=== PATIENT | female | born 1980 | race Caucasian/White ===

== ENCOUNTER 2016-12-10 04:58 | Emergency (ER) | payer OTHER ==
[~2016-12-10] VITALS: Ht 160 cm; Wt 58.9 kg
[2016-12-10 05:06] VITALS: BP 181/119; PULSE 48; RESP 16; TEMP 96.8; O2SAT 97
[2016-12-10] MEDS ORDERED: SODIUM CHLOR 0.9% 1000 ML INJ 1,000 ML IV SCH ×2 (05:37→06:00)
--- NOTE | 2016-12-10 05:43 | PD ---
HPI Chief Complaint: Abdominal Pain Time Seen by Provider: 05:37 Travel History International Travel<30 days: No Contact w/Intl Traveler<30days: No Traveled to known affect area: No History of Present Illness HPI The patient is a 35-year-old female with a history of irritable bowel syndrome who complains of bilateral lower quadrant pain along with nausea, vomiting and diarrhea and blood in the stool for the past 3 hours. She denies any fever, recent antibiotics, recent foreign travel, well water ingestion, family history of bowel problems like regional arteritis or ulcerative colitis. She does feel dehydrated. She states her pain level is a 8 over 10 and a "tightening feeling " over her lower quadrants. She is not had any abdominal surgery and still has her appendix and gallbladder. She is sexually active but states she uses protection. She does not use control pills and does not have an IUD. PFSH Past Medical History Gastrointestinal Disorders: Yes (ibs) Medical other: Yes Tetanus Vaccination: > 5 Years Influenza Vaccination: No ?: Not LMP: 2 weeks ago Past Surgical History Abdominal Surgery: Yes (lawson mcclellan) Social History Alcohol Use: Yes Tobacco Use: Yes (1ppd) Allergies-Medications (Allergen,Severity, Reaction): Coded Allergies: No Known Allergies (Unverified , 12/10/16) Reported Meds & Prescriptions Reported Meds & Active Scripts Active Flagyl (Metronidazole) 500 Mg Tab 500 Mg PO TID 7 Days Cipro (Ciprofloxacin HCl) 500 Mg Tab 500 Mg PO BID 7 Days Review of Systems Except as stated in HPI: all other systems reviewed are Neg Physical Exam Narrative GENERAL: The patient is alert, mildly dehydrated appearing in moderate apparent distress with her abdominal discomfort. Her vital signs show blood pressure 181 /119 and heart rate of 48 but otherwise normal. SKIN: Focused skin assessment warm/dry. HEAD: Atraumatic. Normocephalic. EYES: Pupils equal and round. No scleral icterus. No injection or drainage. ENT: No nasal bleeding or discharge. Mucous membranes pink and moist. NECK: Trachea midline. No JVD. CARDIOVASCULAR: Regular rate and rhythm. No murmur appreciated. RESPIRATORY: No accessory muscle use. Clear to auscultation. Breath sounds equal bilaterally. GASTROINTESTINAL: Abdomen soft, with tenderness to direct palpation in bilateral lower quadrants, nondistended. Hepatic and splenic margins not palpable. No guarding or rebound is present. MUSCULOSKELETAL: No obvious deformities. No clubbing. No cyanosis. No edema. NEUROLOGICAL: Awake and alert. No obvious cranial nerve deficits. Motor grossly within normal limits. Normal speech. PSYCHIATRIC: Appropriate mood and affect; insight and judgment normal. RECTAL EXAM: No masses or tenderness, stool is absent in the colon and I could not test the stool for guaiac positive. There are no active hemorrhoids and there are no perirectal abscess is present. I did not see any gross blood during the rectal exam. Data Data Last Documented VS Vital Signs Date Time Temp Pulse Resp B/P Pulse Ox O2 Delivery O2 Flow Rate FiO2 12/10/16 07:25 76 15 128/75 98 12/10/16 05:52 Room Air 12/10/16 05:06 96.8 Orders Beta Hcg (Quant/Titer) (12/10/16 05:37) Complete Blood Count With Diff (12/10/16 05:37) Comprehensive Metabolic Panel (12/10/16 05:37) Urinalysis - C+S If Indicated (12/10/16 05:37) Iv Access Insert/Monitor (12/10/16 05:37) Ecg Monitoring (12/10/16 05:37) Oximetry (12/10/16 05:37) Morphine Inj (Morphine Inj) (12/10/16 05:45) Ondansetron Inj (Zofran Inj) (12/10/16 05:45) Sodium Chlor 0.9% 1000 Ml Inj (Ns 1000 M (12/10/16 05:37) Sodium Chloride 0.9% Flush (Ns Flush) (12/10/16 05:45) Sodium Chlor 0.9% 1000 Ml Inj (Ns 1000 M (12/10/16 06:00) Ondansetron Inj (Zofran Inj) (12/10/16 06:00) Ct Abd/Pel W Iv Contrast(Rout) (12/10/16 06:08) Lipase (12/10/16 05:44) Iohexol 350 Inj (Omnipaque 350 Inj) (12/10/16 06:46) Ciprofloxacin (Cipro) (12/10/16 07:30) Metronidazole (Flagyl) (12/10/16 07:30) Labs Laboratory Tests Test 12/10/16 12/10/16 05:44 06:48 White Blood Count 20.6 TH/MM3 Red Blood Count 4.65 MIL/MM3 Hemoglobin 14.0 GM/DL Hematocrit 41.9 % Mean Corpuscular Volume 90.1 FL Mean Corpuscular Hemoglobin 30.2 PG Mean Corpuscular Hemoglobin 33.5 % Concent Red Cell Distribution Width 14.3 % Platelet Count 311 TH/MM3 Mean Platelet Volume 9.8 FL Neutrophils (%) (Auto) 84.2 % Lymphocytes (%) (Auto) 8.7 % Monocytes (%) (Auto) 6.1 % Eosinophils (%) (Auto) 0.5 % Basophils (%) (Auto) 0.5 % Neutrophils # (Auto) 17.3 TH/MM3 Lymphocytes # (Auto) 1.8 TH/MM3 Monocytes # (Auto) 1.3 TH/MM3 Eosinophils # (Auto) 0.1 TH/MM3 Basophils # (Auto) 0.1 TH/MM3 CBC Comment DIFF FINAL Differential Comment Sodium Level 142 MEQ/L Potassium Level 3.6 MEQ/L Chloride Level 107 MEQ/L Carbon Dioxide Level 22.9 MEQ/L Anion Gap 12 MEQ/L Blood Urea Nitrogen 17 MG/DL Creatinine 0.66 MG/DL Estimat Glomerular Filtration 101 ML/MIN Rate Random Glucose 101 MG/DL Calcium Level 9.2 MG/DL Total Bilirubin 0.5 MG/DL Aspartate Amino Transf 18 U/L (AST/SGOT) Alanine Aminotransferase 25 U/L (ALT/SGPT) Alkaline Phosphatase 68 U/L Total Protein 7.7 GM/DL Albumin 4.1 GM/DL Lipase 94 U/L Human Chorionic Gonadotropin, LESS THAN 1 Quant MIU/ML Urine Collection Type CLEAN CATCH Urine Color YELLOW Urine Turbidity CLEAR Urine pH 6.0 Urine Specific [place] 1.017 Urine Protein NEG mg/dL Urine Glucose (UA) NEG mg/dL Urine Ketones TRACE mg/dL Urine Occult Blood SMALL Urine Nitrite NEG Urine Bilirubin NEG Urine Leukocyte Esterase NEG Urine RBC 0-3 /hpf Urine WBC 0-2 /hpf Urine Squamous Epithelial 0-5 /hpf Cells Microscopic Urinalysis Comment CULT NOT INDICATED MDM Medical Decision Making Medical Screen Exam Complete: Yes Emergency Medical Condition: Yes Medical Record Reviewed: Yes Interpretation(s) The CBC shows a white count of 20,600 with 84% neutrophils but is otherwise unremarkable. The complete metabolic profile is normal and the beta-hCG is less than 1. Differential Diagnosis Viral gastroenteritis, colitis, appendicitis, dehydration, electrolyte disorder , urinary tract infection, anemia, diverticulitis Narrative Course It is now 0700 and the patient is transferred to Dr. Stephen who will review the CT scan/laboratory work. Scripts Metronidazole (Flagyl)500 Mg [id number] Mg PO TID 7 Days Ref 0 Prov:Maik Stephen MD 12/10/16 Ciprofloxacin (Cipro)500 Mg [id number] Mg PO BID 7 Days Ref 0 Prov:Maik Stephen MD 12/10/16 Simone Waldron MD Dec 10, 2016 05:43
[2016-12-10] MEDS ORDERED: SODIUM CHLORIDE 0.9% FLUSH 10 ML FLUSH IV FLUSH PRN (05:45)
[2016-12-10] MEDS ORDERED: MORPHINE SULFATE 4 MG/ML INJ IV PUSH ONE (05:45)
[2016-12-10] MEDS ORDERED: ONDANSETRON HCL 4 MG/2 ML VIAL IVP ONE (05:45)
[2016-12-10 05:48] VITALS: BP 179/92; PULSE 66; RESP 18; O2SAT 98
[2016-12-10 05:59] LABS: AUTOMATED NEUTROPHIL # 17.3 TH/MM3 (1.8-7.7); BASOPHIL # 0.1 TH/MM3 (0-0.2); BASOPHIL % 0.5 % (0.0-2.0); CHLORIDE 107 MEQ/L (98-107); EOSINOPHIL # 0.1 TH/MM3 (0-0.4); EOSINOPHIL % 0.5 % (0.0-4.0); HEMATOCRIT 41.9 % (35.0-46.0); HEMO FLAGS DIFF FINAL; LYMPH % 8.7 % (9.0-44.0); LYMPHOCYTE # 1.8 TH/MM3 (1.0-4.8); MEAN CELL VOLUME 90.1 FL (80.0-100.0); MEAN CORPUSCULAR HEMOGLOBIN 30.2 PG (27.0-34.0); MEAN CORPUSCULAR HGB CONC 33.5 % (32.0-36.0); MONO % 6.1 % (0.0-8.0); NEUT % 84.2 % (16.0-70.0); PLATELET COUNT 311 TH/MM3 (150-450); POTASSIUM 3.6 MEQ/L (3.5-5.1); RED BLOOD COUNT 4.65 MIL/MM3 (4.00-5.30); RED CELL DISTRIBUTION WIDTH 14.3 % (11.6-17.2); SODIUM (NA) 142 MEQ/L (136-145); WHITE BLOOD COUNT 20.6 TH/MM3 (4.0-11.0)
[2016-12-10] MEDS ORDERED: ONDANSETRON HCL 4 MG/2 ML VIAL IV ONE (06:00)
[2016-12-10 06:03] LABS: ANION GAP 12 MEQ/L (5-15); BICARBONATE 22.9 MEQ/L (21.0-32.0); BLOOD UREA NITROGEN 17 MG/DL (7-18)
[2016-12-10 06:06] LABS: ALT (GPT) 25 U/L (10-53); AST (GOT) 18 U/L (15-37); GLOMERULAR FILTRATION RATE 101 ML/MIN (>89)
[2016-12-10 06:07] LABS: TOTAL BILIRUBIN ADULT 0.5 MG/DL (0.2-1.0)
[2016-12-10 06:08] LABS: ALKALINE PHOSPHATASE 68 U/L (45-117)
[2016-12-10 06:11] LABS: BETA HCG QUANT LESS THAN 1 MIU/ML (0-5)
[2016-12-10] MEDS ORDERED: IOHEXOL 350 MG/ML 10 ML VIAL (for RAD DIAG) IV ONE (06:46)
--- NOTE | 2016-12-10 06:56 | RADRPT ---
EXAM DATE/TIME: 12/10/2016 06:26 [facility] COMPARISON: No previous studies available for comparison. INDICATIONS : Bilateral lower quadrant pain with nausea, vomiting and diarrhea. IV CONTRAST: 85 cc Omnipaque 350 (iohexol) IV ORAL CONTRAST: No oral contrast ingested. RADIATION DOSE: 4.86 CTDIvol (mGy) MEDICAL HISTORY : None SURGICAL HISTORY : Emi mcclellan. ENCOUNTER: Initial ACUITY: 1 day PAIN SCALE: 5/10 LOCATION: Bilateral lower quadrant TECHNIQUE: Volumetric scanning of the abdomen and pelvis was performed. Using automated exposure control and ad justment of the mA and/or kV according to patient size, radiation dose was kept as low as reasonably achievable to obtain optimal diagnostic quality images. DICOM format image data is available electro nically for review and comparison. FINDINGS: LOWER LUNGS: The visualized lower lungs are clear. LIVER: Homogeneous density without lesion. There is no dilation of the biliary tree. No calcified gallston es. Hepatic cyst seen. SPLEEN: Normal size without lesion. PANCREAS: Within normal limits. KIDNEYS: Normal in size and shape. There is no mass, stone or hydronephrosis. ADRENAL GLANDS: Within normal limits. VASCULAR: There is no aortic aneurysm. BOWEL/MESENTERY: Wall thickening of the transverse and descending colon. No significant inflammatory changes.. There is no free intraperitoneal air or fluid. ABDOMINAL WALL: Within normal limits. RETROPERITONEUM: There is no lymphadenopathy. BLADDER: No wall thickening or mass. REPRODUCTIVE: Heterogeneous uterus containing multiple masses likely leiomyomas. There are several right-sided ovar brandyn cyst/adnexal cyst.. INGUINAL: There is no lymphadenopathy or hernia. MUSCULOSKELETAL: Within normal limits for patient age. CONCLUSION: 1. Colitis of the transverse and descending colon. No significant inflammatory changes, perforation o r abscess. 2. Hepatic cysts. 3. Leiomyomas and right adnexal cysts. Santana Lilly MD on December 10, 2016 at 6:50 Board Certified Radiologist. This report was verified electronically.
[2016-12-10 07:00] LABS: BLOOD, URINE SMALL (NEG); GLUCOSE,URINE NEG (NEG); KETONE, URINE TRACE mg/dL (NEG); NITRITE,URINE NEG (NEG)
[2016-12-10 07:01] LABS: METHOD OF COLLECTION CLEAN CATCH; URINE COLOR YELLOW (YELLW/STRAW)
[2016-12-10 07:04] LABS: COMMENT (UR) CULT NOT INDICATED; CULTURE IF INDICATED CULT NOT INDICATED; RBC, URINE 0-3 /hpf (0-3); SQUAMOUS EPITHELIAL CELL URINE 0-5 /hpf (0-5); WBC, URINE 0-2 /hpf (0-5)
[2016-12-10] MEDS ORDERED: CIPR-9 PO (07:19)
[2016-12-10] MEDS ORDERED: METR-1 PO (07:19)
--- NOTE | 2016-12-10 07:20 | PD ---
Data Data Last Documented VS Vital Signs Date Time Temp Pulse Resp B/P Pulse Ox O2 Delivery O2 Flow Rate FiO2 12/10/16 05:52 Room Air 12/10/16 05:48 66 18 179/92 98 12/10/16 05:06 96.8 Orders Beta Hcg (Quant/Titer) (12/10/16 05:37) Complete Blood Count With Diff (12/10/16 05:37) Comprehensive Metabolic Panel (12/10/16 05:37) Urinalysis - C+S If Indicated (12/10/16 05:37) Iv Access Insert/Monitor (12/10/16 05:37) Ecg Monitoring (12/10/16 05:37) Oximetry (12/10/16 05:37) Morphine Inj (Morphine Inj) (12/10/16 05:45) Ondansetron Inj (Zofran Inj) (12/10/16 05:45) Sodium Chlor 0.9% 1000 Ml Inj (Ns 1000 M (12/10/16 05:37) Sodium Chloride 0.9% Flush (Ns Flush) (12/10/16 05:45) Sodium Chlor 0.9% 1000 Ml Inj (Ns 1000 M (12/10/16 06:00) Ondansetron Inj (Zofran Inj) (12/10/16 06:00) Ct Abd/Pel W Iv Contrast(Rout) (12/10/16 06:08) Lipase (12/10/16 05:44) Iohexol 350 Inj (Omnipaque 350 Inj) (12/10/16 06:46) Labs Laboratory Tests Test 12/10/16 12/10/16 05:44 06:48 White Blood Count 20.6 TH/MM3 Red Blood Count 4.65 MIL/MM3 Hemoglobin 14.0 GM/DL Hematocrit 41.9 % Mean Corpuscular Volume 90.1 FL Mean Corpuscular Hemoglobin 30.2 PG Mean Corpuscular Hemoglobin 33.5 % Concent Red Cell Distribution Width 14.3 % Platelet Count 311 TH/MM3 Mean Platelet Volume 9.8 FL Neutrophils (%) (Auto) 84.2 % Lymphocytes (%) (Auto) 8.7 % Monocytes (%) (Auto) 6.1 % Eosinophils (%) (Auto) 0.5 % Basophils (%) (Auto) 0.5 % Neutrophils # (Auto) 17.3 TH/MM3 Lymphocytes # (Auto) 1.8 TH/MM3 Monocytes # (Auto) 1.3 TH/MM3 Eosinophils # (Auto) 0.1 TH/MM3 Basophils # (Auto) 0.1 TH/MM3 CBC Comment DIFF FINAL Differential Comment Sodium Level 142 MEQ/L Potassium Level 3.6 MEQ/L Chloride Level 107 MEQ/L Carbon Dioxide Level 22.9 MEQ/L Anion Gap 12 MEQ/L Blood Urea Nitrogen 17 MG/DL Creatinine 0.66 MG/DL Estimat Glomerular Filtration 101 ML/MIN Rate Random Glucose 101 MG/DL Calcium Level 9.2 MG/DL Total Bilirubin 0.5 MG/DL Aspartate Amino Transf 18 U/L (AST/SGOT) Alanine Aminotransferase 25 U/L (ALT/SGPT) Alkaline Phosphatase 68 U/L Total Protein 7.7 GM/DL Albumin 4.1 GM/DL Lipase 94 U/L Human Chorionic Gonadotropin, LESS THAN 1 Quant MIU/ML Urine Collection Type CLEAN CATCH Urine Color YELLOW Urine Turbidity CLEAR Urine pH 6.0 Urine Specific [place] 1.017 Urine Protein NEG mg/dL Urine Glucose (UA) NEG mg/dL Urine Ketones TRACE mg/dL Urine Occult Blood SMALL Urine Nitrite NEG Urine Bilirubin NEG Urine Leukocyte Esterase NEG Urine RBC 0-3 /hpf Urine WBC 0-2 /hpf Urine Squamous Epithelial 0-5 /hpf Cells Microscopic Urinalysis Comment CULT NOT INDICATED MDM Medical Record Reviewed: Yes Supervised Visit with CLEMENCIA: No Narrative Course CBC & BMP Diagram 12/10/16 05:44 LFTs normal Lipase 94 HCG < 1 Last 24 hours Impressions Abdomen/Pelvis CT 12/10/16 0608 Signed Impressions: Service Date/Time: Saturday, December 10, 2016 06:26 - CONCLUSION: 1. Colitis of the transverse and descending colon. No significant inflammatory changes, perforation or abscess. 2. Hepatic cysts. 3. Leiomyomas and right adnexal cysts. Santana Lilly MD PT has colitis. At 715AM she was founding resting comfortably. Plan for outpatient abx discussed and patient agreeable with plan. Diet/lifestyle modification discussed. Diagnosis Primary Impression: Colitis Referrals: Primary Care Physician 2 days Additional Instruction: You have a choice when it comes to health care, and we are glad that you chose [facility]. Hopefully, we have met your expectations on today's visit. You are welcome to return to [facility] at any time, as we are committed to meeting the health care needs of our community. Med/Other Pt SpecificInfo: Prescription(s) given Scripts Metronidazole (Flagyl)500 Mg Rav585 Mg PO TID 7 Days Ref 0 Prov:Maik Stephen MD 12/10/16 Ciprofloxacin (Cipro)500 Mg [id number] Mg PO BID 7 Days Ref 0 Prov:Maik Stephen MD 12/10/16 Disposition: 01 DISCHARGE HOME Condition: Stable Maik Stephen MD Dec 10, 2016 07:20
[2016-12-10 07:25] VITALS: BP 128/75
[2016-12-10] MEDS ORDERED: metroNIDAZOLE 500 MG TAB PO ONE (07:30)
[2016-12-10] MEDS ORDERED: CIPROFLOXACIN 500 MG TAB PO ONE (07:30)
== END 2016-12-10 07:33 | disposition home or self-care (01) ==
LOC: PHED 04:58
DX: K52.9 Noninfective gastroenteritis and colitis, unspecified (principal); F17.210 Nicotine dependence, cigarettes, uncomplicated
CPT/HCPCS: 74177; 80053; 81001; 83690; 84702; 85025; 96361; 96374; 96375; 99285; J2270; J2405; J7030; Q9967

== ENCOUNTER 2016-12-10 10:42 | Inpatient (IN) | payer OTHER ==
[~2016-12-10] VITALS: Ht 160 cm; Wt 61.5 kg
[~2016-12-10 10:42] MED LIST: CIPR-9 PO; METR-1 PO
[2016-12-10 10:45] VITALS: BP 182/109; PULSE 50; RESP 16; TEMP 98.1; O2SAT 100
[2016-12-10] MEDS ORDERED: SODIUM CHLOR 0.9% 1000 ML INJ 1,000 ML IV SCH ×2 (10:53→11:14)
--- NOTE | 2016-12-10 10:56 | PD ---
HPI Chief Complaint: Abdominal Pain Time Seen by Provider: 10:53 Travel History International Travel<30 days: No Contact w/Intl Traveler<30days: No Traveled to known affect area: No History of Present Illness HPI Patient's 35 years old. She returns to the ER after she was evaluated here for nausea vomiting and bloody diarrhea. She was discharged just a few hours prior to her return. Her workup on the prior visit included a CT scan and blood work which yielded a white count of 20,000 and colitis seen on CT involving the transverse and descending colon. The patient was sent home with Cipro and Flagyl having significantly improved during her ER stay. The mother called from home and requested a call in for nausea and pain medication. At that point she was advised to return to the ER where the history as noted above was revealed. [facility] Past Medical History Diminished Hearing: No Gastrointestinal Disorders: Yes (ibs) Immunizations Current: Yes Tetanus Vaccination: Unknown Influenza Vaccination: No ?: Not LMP: 2 WEEKS Past Surgical History Abdominal Surgery: Yes (lawson mcclellan) Social History Alcohol Use: Yes ([facility]) Tobacco Use: Yes (1/2) Substance Use: No Allergies-Medications (Allergen,Severity, Reaction): Coded Allergies: No Known Allergies (Unverified , 12/10/16) Reported Meds & Prescriptions Reported Meds & Active Scripts Active Flagyl (Metronidazole) 500 Mg Tab 500 Mg PO TID 7 Days Cipro (Ciprofloxacin HCl) 500 Mg Tab 500 Mg PO BID 7 Days Review of Systems Except as stated in HPI: all other systems reviewed are Neg Physical Exam Narrative GENERAL: 35 yo F, WNWD, mild distress 2/2 pain SKIN: Warm and dry. HEAD: Atraumatic. Normocephalic. EYES: Pupils equal and round. No scleral icterus. No injection or drainage. ENT: No nasal bleeding or discharge. Mucous membranes pink and moist. NECK: Trachea midline. No JVD. CARDIOVASCULAR: Regular rate and rhythm. RESPIRATORY: No accessory muscle use. Clear to auscultation. Breath sounds equal bilaterally. GASTROINTESTINAL: Soft. TTP epigastrium and LUQ. MUSCULOSKELETAL: Extremities without clubbing, cyanosis, or edema. No obvious deformities. NEUROLOGICAL: Awake and alert. No obvious cranial nerve deficits. Motor grossly within normal limits. Five out of 5 muscle strength in the arms and legs. Normal speech. PSYCHIATRIC: Appropriate mood and affect; insight and judgment normal. Data Data Last Documented VS Vital Signs Date Time Temp Pulse Resp B/P Pulse Ox O2 Delivery O2 Flow Rate FiO2 12/10/16 10:45 98.1 50 16 182/109 100 VS reviewed Orders Iv Access Insert/Monitor (12/10/16 10:53) Ecg Monitoring (12/10/16 10:53) Oximetry (12/10/16 10:53) Hydromorphone Pf Inj (Dilaudid Pf Inj) (12/10/16 11:00) Ondansetron Inj (Zofran Inj) (12/10/16 11:00) Sodium Chlor 0.9% 1000 Ml Inj (Ns 1000 M (12/10/16 10:53) Sodium Chloride 0.9% Flush (Ns Flush) (12/10/16 11:00) Admit Order (Ed Use Only) (12/10/16 10:57) MDM Medical Decision Making Medical Screen Exam Complete: Yes Emergency Medical Condition: Yes Medical Record Reviewed: Yes Differential Diagnosis Constipation, Gastritis, Acute Cholecystitis, Biliary Colic, Pancreatitis, ROMANO , Hepatitis, Bowel Obstruction, Cystitis, Mesenteric Ischemia, AAA, Appendicitis , Renal Stone/Hydronephrosis, GERD, perforated viscous Narrative Course The patient will be admitted for IV hydration, antibiotics, antiemetics and pain control. As noted during the prior evaluation the patient's workup was significant for leukocytosis of 20,000 with a normal CMP and lipase. She also had a CT abdomen and pelvis which revealed colitis involving the transverse and descending colon. Repeat imaging or blood work is considered reasonably safely deferrable at time of reassessment. d/w Dr Dhillon. Diagnosis Primary Impression: Colitis Additional Impression: Nausea vomiting and diarrhea Admitting Information Admitting Physician Requests: Observation Maik Stephen MD Dec 10, 2016 10:56
[2016-12-10] MEDS ORDERED: HYDROmorphone HCL PF 2 MG/ML VIAL IVS ONE (11:00)
[2016-12-10] MEDS ORDERED: ONDANSETRON HCL 4 MG/2 ML VIAL IVP ONE (11:00)
[2016-12-10] MEDS ORDERED: SODIUM CHLORIDE 0.9% FLUSH 10 ML FLUSH IV FLUSH PRN ×2 (11:00→11:15)
[2016-12-10 11:13] VITALS: BP 138/84; PULSE 65; RESP 18; O2SAT 97
[2016-12-10] MEDS ORDERED: ACETAMINOPHEN 325 MG TAB PO PRN ×2 (11:15)
[2016-12-10] MEDS ORDERED: ONDANSETRON HCL 4 MG/2 ML VIAL IVP PRN (11:15)
[2016-12-10] MEDS ORDERED: TEMAZEPAM 15 MG CAP PO PRN (11:15)
[2016-12-10] MEDS ORDERED: NALOXONE HCL 0.4 MG/ML AMP IV PRN (11:15)
--- NOTE | 2016-12-10 11:26 | HHI.HP ---
[facility]Staff Admission Diagnosis Transverse/Descending Colitis, N/V/D Diagnoses: (1) Colitis, acute (2) Nausea vomiting and diarrhea Chief Complaint: Abdominal pain Travel History International Travel<30 Days: No Contact w/Intl Traveler <30 Da: No Traveled to Known Affected Are: No History of Present Illness 35 year-old female with a history of IBS was seen early in ED for evaluation of an acute onset of abdominal pain rated 8/10 intensity, nausea and bloody diarrhea however discharged returned again with severe uncontrollable abdominal pain. CT abdomen/pelvics finding of transverse and descending colitis. Apparently patient was treated with Cipro and Flagyl with improvement of symptoms and abnormal labs include WBC 20,000's. Patient also reported diaphoresis however no febrile episode. She denies any sick contact. Review of Systems Except as stated in HPI: all other systems reviewed are Neg Past Family Social History Past Medical History IBS Past Surgical History Patient's 35 years old. She returns to the ER after she was evaluated here for nausea vomiting and bloody diarrhea. She was discharged just a few hours prior to her return. Her workup on the prior visit included a CT scan and blood work which yielded a white count of 20,000 and colitis seen on CT involving the transverse and descending colon. The patient was sent home with Cipro and Flagyl having significantly improved during her ER stay. The mother called from home and requested a call in for nausea and pain medication. At that point she was advised to return to the ER where the history as noted above was revealed. History PFSH Past Medical History Diminished Hearing: No Gastrointestinal Disorders: Yes (ibs) Immunizations Current: Yes lawson mcclellan Reported Medications Not currently on any medication Allergies: Coded Allergies: No Known Allergies (Unverified , 12/10/16) Family History Family history positive for hypertension and hyperlipidemia on her mom's side Social History Alcohol Use: Yes (OCC) Tobacco Use: Yes (1/2) Substance Use: No Physical Exam Vital Signs Vital Signs Date Time Temp Pulse Resp B/P Pulse Ox O2 Delivery O2 Flow Rate FiO2 12/10/16 11:13 97 Room Air 12/10/16 11:13 65 18 138/84 97 Room Air 12/10/16 10:45 98.1 50 16 182/109 100 Physical Exam GENERAL: This is a well-nourished, well-developed patient, in no apparent distress. SKIN: No rashes, ecchymoses or lesions. Cool and dry. HEAD: Atraumatic. Normocephalic. No temporal or scalp tenderness. EYES: Pupils equal round and reactive. Extraocular motions intact. No scleral icterus. No injection or drainage. ENT: Nose without bleeding, purulent drainage or septal hematoma. Throat without erythema, tonsillar hypertrophy or exudate. Uvula midline. Airway patent. NECK: Trachea midline. No JVD or lymphadenopathy. Supple, nontender, no meningeal signs. CARDIOVASCULAR: Regular rate and rhythm without murmurs, gallops, or rubs. RESPIRATORY: Clear to auscultation. Breath sounds equal bilaterally. No wheezes , rales, or rhonchi. GASTROINTESTINAL: Abdomen soft, mildly tender, nondistended. No hepato- splenomegaly, or palpable masses. Hypoactive bowel sounds. No guarding. MUSCULOSKELETAL: Extremities without clubbing, cyanosis, or edema. No joint tenderness, effusion, or edema noted. No calf tenderness. Negative Homans sign bilaterally. NEUROLOGICAL: Awake and alert. Cranial nerves II through XII intact. Motor and sensory grossly within normal limits. Five out of 5 muscle strength in all muscle groups. Normal speech. Assessment and Plan Problem List: (1) Colitis, acute ICD Code: K52.9 Status: Acute Assessment and Plan 85-year-old female with Transverse and descending colitis CT abdomen/pelvics noted and review by me with finding of colitis Start IV Cipro and Flagyl Keep nothing by mouth and continue IV fluid hydration Pain management accordingly Leukocytosis From above infectious process Tobacco abuse Counseled on cessation, patient declined nicotine patch GI prophylaxis: PPI Code Status Full code Discussed Condition With Patient, mother, ED physician Physician Certification 2 Midnight Certification Type: Admission for Inpatient Services Order for Inpatient Services The services are ordered in accordance with Medicare regulations or non- Medicare payer requirements, as applicable. In the case of services not specified as inpatient-only, they are appropriately provided as inpatient services in accordance with the 2-midnight benchmark. Estimated LOS (days): 2 days is the estimated time the patient will need to remain in the hospital, assuming treatment plan goals are met and no additional complications. Post-Hospital Plan: Not yet determined Santana Dhillon MD Dec 10, 2016 11:26
[2016-12-10 12:00] VITALS: BP 160/100; PULSE 65; RESP 16; TEMP 97.6; O2SAT 97
[2016-12-10] MEDS ORDERED: PANTOPRAZOLE SODIUM 40 MG VIAL IV PUSH SCH (12:00)
[2016-12-10] MEDS ORDERED: metroNIDAZOLE 500 MG INJ 100 ML IV SCH (16:00)
[2016-12-10] MEDS ORDERED: CIPROFLOXACIN 400 MG PREMIX 200 ML IV SCH (20:00)
[2016-12-10] MEDS ORDERED: SODIUM CHLORIDE 0.9% FLUSH 10 ML FLUSH IV FLUSH SCH (21:00)
== END 2016-12-10 14:45 | disposition left against medical advice (07) | DRG 392 ==
LOC: PHED 10:42 → PHEDA 10:59 → PH3A 11:29
PROVIDERS: ADMIT Hospitalist; ATTEND Hospitalist
DX: K52.9 Noninfective gastroenteritis and colitis, unspecified (principal); F17.200 Nicotine dependence, unspecified, uncomplicated
CPT/HCPCS: J1170; J2405; J7030